=== PATIENT | female | born 1995 | race Caucasian/White ===

== ENCOUNTER → 2016-12-09 | Outpatient (CLI) | payer BC | LOC: LAB.O 09:11 | PROVIDERS: ATTEND Nurse Practitioner Family | DX: R00.0 Tachycardia, unspecified (principal) ==

== ENCOUNTER → 2017-04-04 | Outpatient (CLI) | payer BC ==
--- NOTE | 2017-04-04 16:15 | US ---
EXAM DESCRIPTION: Pelvis Transvaginal CLINICAL HISTORY: 22 years, Female, PELVIC PAIN COMPARISON: None. FINDINGS: Endovaginal scanning. Anteverted uterus 6.6 x 3.4 x 3.8 cm. Endometrium 5 mm. Intrauterine contraceptive device present. No free fluid. Right ovary 5.7 x 2.1 x 3.0 cm. Left ovary 2.5 x 2.2 x 4.0 cm IMPRESSION: Intrauterine contraceptive device in place. Study otherwise unremarkable Electronically signed by: Rahat Rogers MD 04/04/2017 4:14 PM CDT
== END ==
LOC: US 10:00
PROVIDERS: ATTEND Obstetrics & Gynecology
DX: R10.2 Pelvic and perineal pain (principal); Z97.5 Presence of (intrauterine) contraceptive device

== ENCOUNTER → 2017-12-04 | Outpatient (CLI) | payer BC, OTHER ==
--- NOTE | 2017-12-04 21:06 | US ---
EXAM DESCRIPTION: Gall Bladder: Ultrasound. CLINICAL HISTORY: 22 years Female, UNSPECIFIED ABDOMINAL PAIN COMPARISON: Abdominal ultrasound 01/23/2014. TECHNIQUE: Standard transabdominal scanning: Two-dimensional and Doppler modes. FINDINGS: Gallbladder contains at least 2 echogenic stones with acoustic shadowing. These are mobile with patient change in position measuring 1.2-1.3 cm. No wall thickening or fluid. Nontender with transducer pressure. Common bile duct 4.5 mm. Normal echogenicity and size of the pancreas. Duct not seen. Normal echogenicity of the liver with smooth capsule. Long axis of the right lobe is 12.7 cm. No intrahepatic biliary dilatation. Normal hepatopedal portal flow. No ascites. Long axis of the right kidney is 10.6 cm. No hydronephrosis or perinephric fluid. Normal cortical thickness and echoes. IMPRESSION: Normal ultrasound of the right upper quadrant of the abdomen. No organomegaly. Normal ducts. No ascites. Nontender exam. Electronically signed by: Miller Davalos MD 12/04/2017 9:04 PM [employer]
== END | disposition home or self-care (01) ==
LOC: LAB 11:14
PROVIDERS: ATTEND Nurse Practitioner Family
DX: R10.9 Unspecified abdominal pain (principal)

== ENCOUNTER → 2018-05-14 | Outpatient (CLI) | payer BC, OTHER | LOC: YCFC.O 15:48 | PROVIDERS: ATTEND Nurse Practitioner Family | DX: Z00.00 Encounter for general adult medical examination without abnormal findings (principal); R53.83 Other fatigue; E88.81 Metabolic syndrome and other insulin resistance ==

== ENCOUNTER → 2018-08-06 | Outpatient (CLI) | payer OTHER | LOC: LAB.O 15:24 | PROVIDERS: ATTEND Nurse Practitioner Family | DX: R53.83 Other fatigue (principal) ==

== ENCOUNTER → 2018-10-15 | Outpatient (CLI) | payer OTHER | LOC: LAB.O 10:35 | PROVIDERS: ATTEND Internal Medicine Hematology & Oncology | DX: D50.8 Other iron deficiency anemias (principal) ==

== ENCOUNTER → 2018-11-01 | Outpatient (CLI) | payer OTHER | LOC: LAB.O 14:21 | PROVIDERS: ATTEND Physician Assistant | DX: F33.0 Major depressive disorder, recurrent, mild (principal) ==

== ENCOUNTER → 2018-11-20 | Outpatient (CLI) | payer BC | LOC: LAB.O 14:28 | PROVIDERS: ATTEND Nurse Practitioner Family | DX: Z77.22 Contact with and (suspected) exposure to environmental tobacco smoke (acute) (chronic) (principal) ==

== ENCOUNTER 2019-02-04 05:20 | Emergency (ER) | payer BC ==
--- NOTE | 2019-02-04 05:36 | ED.PDOC ---
History of Present Illness - General Time Seen by Provider: 02/04/19 05:31 Source: patient, RN notes reviewed Additional Information: 23 YEAR OLD WHITE FEMALE PRESENTS WITH CHST PAIN PRECARDIAL AREA ASSOCIATED WITH PALPITATIONS SHORTNESS OF BREATH DIZZINESS AND NAUSEA BUT NO RADIATION LASTED FOR 15 MIN SHE HAS HISTORY OF PSVT NO KNOWN CAD RISK FACTORS - History of Present Illness Timing/Duration: other - LASTED FOR 15 MIN BUT NO PAIN Improving Factors: nothing Worsening Factors: nothing Associated Symptoms: chest pain, nausea/vomiting, shortness of breath Allergies/Adverse Reactions: Allergies NO KNOWN ALLERGY Allergy (Verified 02/04/19 05:40) Home Medications: Ambulatory Orders Albuterol Sulfate Nebs [Proventil Nebs] 2.5 mg INH PRN PRN 10/28/14 Progesterone Micronized [Progesterone] 200 mg PO DAILY 11/23/15 Thyroid [[place] Thyroid] 60 mg PO DAILY 11/23/15 Ondansetron Tab [Zofran Tab] 4 mg PO BID PRN #8 tab 12/22/15 Review of Systems - Review of Systems Constitutional: States: no symptoms reported EENTM: States: no symptoms reported Respiratory: States: no symptoms reported Cardiology: States: see HPI Gastrointestinal/Abdominal: States: no symptoms reported Genitourinary: States: no symptoms reported Musculoskeletal: States: no symptoms reported Skin: States: no symptoms reported Neurological: States: no symptoms reported Endocrine: States: no symptoms reported Hematologic/Lymphatic: States: no symptoms reported Past Medical History (General) - Patient Medical History Hx Seizures: No Hx Stroke: No Hx Dementia: No Hx Asthma: Yes Hx of COPD: No Hx Cardiac Disorders: Yes - "murmur" Hx Congestive Heart Failure: No Hx Pacemaker: No Hx Hypertension: No Hx Thyroid Disease: Yes Hx Diabetes: No Hx Gastroesophageal Reflux: No Hx Renal Disease: No Hx Cancer: No Hx of HIV: No Hx Hepatitis C: No Hx MRSA: No - Vaccination History Hx Tetanus, Diphtheria Vaccination: Yes Hx Influenza Vaccination: Yes Hx Pneumococcal Vaccination: No - Social History Hx Tobacco Use: Yes Hx Chewing Tobacco Use: No Hx Alcohol Use: Yes - occ Hx Physical Abuse: No Hx Emotional Abuse: No Hx Suspected Abuse: No - Female History Patient : No Family Medical History - Family History Mother Family History: Unknown Living Status: Unknown Hx Family;Other: hypothroid Physical Exam - Physical Exam General Appearance: Alert, Comfortable Eye Exam: bilateral normal Ears, Nose, Throat: hearing grossly normal, normal ENT inspection, normal pharynx Neck: non-tender, full range of motion, supple Respiratory: chest non-tender, lungs clear, normal breath sounds, no respiratory distress, no accessory muscle use Cardiovascular/Chest: normal peripheral pulses, regular rate, rhythm, no edema, no gallop, no JVD, no murmur Peripheral Pulses: radial,right: 2+, radial,left: 2+, femoral,right: 2+, femoral,left: 2+ Gastrointestinal/Abdominal: normal bowel sounds, non tender, soft, no organomega ly, no pulsatile mass Back Exam: normal inspection, no CVA tenderness, no vertebral tenderness 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, no motor/sensory deficits, alert, normal mood/affect, oriented x 3 Skin Exam: normal color Lymphatic: no adenopathy Progress - Progress Progress: 02/04/19 06:36 Laboratory Tests 02/04/19 02/04/19 05:30 05:30 WBC 10.9 H RBC 5.08 Hgb 15.2 Hct 45.0 MCV 88.6 MCH 30.0 MCHC 33.9 RDW 12.8 Plt Count 257 MPV 8.9 Absolute Neuts (auto) 5.40 Absolute Lymphs (auto) 3.80 H Absolute Monos (auto) 1.20 H Absolute Eos (auto) 0.40 Absolute Basos (auto) 0.10 Neutrophils % 49.4 Lymphocytes % 35.2 Monocytes % 10.8 H Eosinophils % 3.7 Basophils % 0.9 PT 9.6 INR 0.96 PTT (SP) 29.1 D-Dimer, Quantitative 0.25 Sodium 138 Potassium 3.5 L Chloride 104 Carbon Dioxide 24 Anion Gap 13.5 BUN 11 Creatinine 0.72 BUN/Creatinine Ratio 15.3 Random Glucose 86 Serum Osmolality 274.4 L Calcium 9.2 Magnesium 2.1 Creatine Kinase 72 CK-MB (CK-2) 0.8 CK-MB (CK-2) % Not Reportable Troponin I < 0.02 - EKG/XRAY/CT EKG: Sinus, no ST T wave changes Departure - Departure Clinical Impression: Chest pain, History of PSVT (paroxysmal supraventricular tachycardia) Time of Disposition: 06:37 Disposition: Discharge to Home or Self Care Referrals: Maxwell Emery MD [Primary Care Provider] - 1-2 Weeks Home Medications: Ambulatory Orders Albuterol Sulfate Nebs [Proventil Nebs] 2.5 mg INH PRN PRN 10/28/14 Progesterone Micronized [Progesterone] 200 mg PO DAILY 11/23/15 Thyroid [[place] Thyroid] 60 mg PO DAILY 11/23/15 Ondansetron Tab [Zofran Tab] 4 mg PO BID PRN #8 tab 12/22/15 Comments: PLEASE NOTIFY YOUR PCP AND [facility] OF TODAYS EVENT
[2019-02-04 05:40] VITALS: TEMP 97.9
[2019-02-04 06:09] VITALS: BP 109/77
--- NOTE | 2019-02-04 06:24 | RAD ---
EXAM DESCRIPTION: Chest,1 View CLINICAL HISTORY:23 years Female, chest pain Comparison: None FINDINGS: No focal lung consolidation. No pleural effusion. No pneumothorax. Cardiac and mediastinal silhouette is unremarkable. No acute osseous abnormality. Soft tissues are unremarkable. IMPRESSION: No acute findings. No focal lung consolidation. Electronically signed by: Rufus Vasquez MD 02/04/2019 6:21 AM CDT
[2019-02-04 06:57] VITALS: O2SAT 97
== END 2019-02-04 06:58 | disposition home or self-care (01) ==
LOC: ER 05:20
DX: R07.2 Precordial pain (principal); R00.2 Palpitations; R06.02 Shortness of breath; R42 Dizziness and giddiness; R01.1 Cardiac murmur, unspecified; E07.9 Disorder of thyroid, unspecified; J45.909 Unspecified asthma, uncomplicated; Z79.899 Other long term (current) drug therapy; Z87.891 Personal history of nicotine dependence

== ENCOUNTER → 2019-12-09 | Outpatient (CLI) | payer BC | LOC: LAB.O 10:54 | PROVIDERS: ATTEND Physician Assistant | DX: R10.84 Generalized abdominal pain (principal) ==

== ENCOUNTER → 2020-05-07 | Outpatient (CLI) | payer BC | LOC: YCFC.O 07:43 | PROVIDERS: ATTEND Family Medicine | DX: E02 Subclinical iodine-deficiency hypothyroidism (principal); R53.81 Other malaise; Z86.2 Personal history of diseases of the blood and blood-forming organs and certain disorders involving the immune mechanism ==

== ENCOUNTER → 2020-09-15 | Outpatient (CLI) | payer BC ==
--- NOTE | 2020-09-15 16:13 | RAD ---
EXAM DESCRIPTION: Wrist,Right 3 Views CLINICAL HISTORY: PAIN IN RIGHT HAND COMPARISON: None. TECHNIQUE: 3 views right FINDINGS: I see no bone or joint abnormality. IMPRESSION: No fracturing is detected. Electronically signed by: Nahum Espinal MD 09/15/2020 4:12 PM [facility]
--- NOTE | 2020-09-15 16:16 | RAD ---
EXAM DESCRIPTION: Hand,Right 3 Views CLINICAL HISTORY: Pain COMPARISON: None Available. TECHNIQUE: AP, lateral, and oblique views right hand. FINDINGS: No acute displaced fracture or dislocation. The osseous alignment is normal. There are no significant arthritic changes. There is no radiopaque foreign body. The soft tissues are unremarkable. IMPRESSION: 1. No acute osseous abnormality. Electronically signed by: Eric Mora DO 09/15/2020 4:15 PM [facility]
== END ==
LOC: RAD 09:23
PROVIDERS: ATTEND Family Medicine
DX: M25.531 Pain in right wrist (principal); M79.641 Pain in right hand

== ENCOUNTER → 2020-12-25 | Outpatient (CLI) | payer BC ==
--- NOTE | 2020-12-25 09:50 | RAD ---
EXAM DESCRIPTION: Wrist,Right 3 Views CLINICAL HISTORY: 25 years Female, RIGHT WRIST PAIN COMPARISON: None. Findings: 3 view(s)/radiograph(s) No acute fracture or dislocation. No focal soft tissue swelling. Joint spaces are maintained. Carpal alignment maintained. IMPRESSION: No acute osseous abnormality in the right wrist. Electronically signed by: Cholo Robles MD 12/25/2020 9:48 AM [facility]
== END ==
LOC: RAD 07:00
PROVIDERS: ATTEND Orthopaedic Surgery
DX: M25.531 Pain in right wrist (principal)